=== PATIENT | male | born 1995 | race Asian ===

== ENCOUNTER 2017-05-18 08:51 | Emergency (ER) | payer OTHER ==
[~2017-05-18] VITALS: Ht 172.7 cm; Wt 73.7 kg
[2017-05-18 09:21] VITALS: BP 143/87
--- NOTE | 2017-05-18 09:32 | NUR ---
PATIENT PRESENTS TO ED WITH LACERATION TO RIGHT LOWER LEG . DENIES N/V/D; SKIN IS PINK/WARM/DRY; AAOX4 WITH EVEN AND STEADY GAIT; LUNGS CLEAR BL; HR EVEN AND REGULAR; PT DENIES ANY FEVER, CP, SOB, OR COUGH AT THIS TIME; PATIENT STATES PAIN OF 5/10 AT THIS TIME; VSS; PATIENT POSITIONED FOR COMFORT; HOB ELEVATED; BEDRAILS UP X2; BED DOWN. ER MD MADE AWARE OF PT STATUS.
--- NOTE | 2017-05-18 10:10 | NUR ---
PT LEFT FOR X-RAY VIA WHEELCHAIR ACCOMPANIED BY TECH.
[2017-05-18] MEDS ORDERED: LIDOCAINE 1% ***ER ONLY *** 10 MG/ML VIAL INJ ONE (10:40)
[2017-05-18] MEDS ORDERED: NEOMYCIN/POLYMYXIN/BACITRACIN 0.9 GM/1 PKT TP ONE (10:57)
[2017-05-18 11:13] VITALS: BP 135/80
--- NOTE | 2017-05-18 11:14 | NUR ---
Patient discharged with v/s stable. Written and verbal after care instructions given and explained. Patient alert, oriented and verbalized understanding of instructions. . All questions addressed prior to discharge. ID band removed. Patient advised to follow up with PMD. Rx of NAPROXEN given. Patient educated on indication of medication including possible reaction and side effects. Opportunity to ask questions provided and answered.
== END 2017-05-18 11:14 | disposition home or self-care (01) ==
LOC: MED 08:51
DX: S81.811A Laceration without foreign body, right lower leg, initial encounter (principal); S91.311A Laceration without foreign body, right foot, initial encounter; J45.909 Unspecified asthma, uncomplicated; Z91.013 Allergy to seafood; W22.8XXA Striking against or struck by other objects, initial encounter; Y93.89 Activity, other specified; Y92.89 Other specified places as the place of occurrence of the external cause; Y99.8 Other external cause status
CPT/HCPCS: 12002; 73590; 73630; 90471; 90715; 99284; J2001